=== PATIENT | male | born 1970 | race Caucasian/White ===

== ENCOUNTER 2025-03-21 17:07 | Emergency (ER) | payer BC ==
[~2025-03-21] VITALS: Ht 175.3 cm; Wt 76.2 kg
[2025-03-21 17:12] VITALS: TEMP 97.9
[2025-03-21] MEDS: IV NS 0.9% 1,000 ML BAG IV ONE (17:30)
[2025-03-21 17:32] LABS: BASOPHILS # (AUTO) 0.1 K/uL (0.0-0.2); BASOPHILS % (AUTO) 0.5 % (0.0-2.0); EOSINOPHILS % (AUTO) 0.4 % (0.0-6.0); HEMATOCRIT 43 % (39-51); HEMOGLOBIN 14.5 g/dL (13.5-17.5); LYMPHOCYTES # (AUTO) 1.2 K/uL (0.8-4.8); LYMPHOCYTES % (AUTO) 11.2 % (20.0-44.0); MEAN CORPUSCULAR HEMOGLOBIN 32 PG (26.0-33.0); MEAN CORPUSCULAR HGB CONC 34 g/dl (31.0-36.0); MEAN CORPUSCULAR VOLUME 96 fL (80-96); MONOCYTES # (AUTO) 0.7 K/uL (0.1-1.30); MONOCYTES % (AUTO) 6.7 % (2.0-12.0); NEUTROPHILS # (AUTO) 8.9 K/uL (1.8-8.9); NEUTROPHILS % (AUTO) 81.2 % (43.0-81.0); PLATELET COUNT (AUTO) 316 K/uL (150-450); RED BLOOD CELL COUNT(AUTO) 4.53 MIL/uL (4.5-6.0); RED CELL DISTRIBUTION WIDTH 13.9 % (11.5-15.0)
[2025-03-21 17:40] LABS: CALCIUM, SERUM 9.7 mg/dL (8.5-10.1); CREATININE 1.4 mg/dL (0.6-1.3); POTASSIUM 4.7 mmol/L (3.5-5.1)
[2025-03-21 19:39] VITALS: BP 110/75; O2SAT 96
== END 2025-03-21 19:25 | disposition home or self-care (01) ==
LOC: ER 17:10
DX: T67.5XXA Heat exhaustion, unspecified, initial encounter (principal); M79.10 Myalgia, unspecified site; R25.2 Cramp and spasm; Z87.19 Personal history of other diseases of the digestive system; X30.XXXA Exposure to excessive natural heat, initial encounter; Y93.89 Activity, other specified; Y92.89 Other specified places as the place of occurrence of the external cause; Y99.8 Other external cause status
CPT/HCPCS: 99283; 96360; 85025; 80048; 82550; 36415; 82553; J7030